=== PATIENT | male | born 1985 | race Caucasian/White ===

== ENCOUNTER 2024-04-09 04:20 | Emergency (ER) | payer OTHER ==
[~2024-04-09] VITALS: Ht 175.3 cm; Wt 100.0 kg
[2024-04-09 04:23] VITALS: TEMP 97.7; O2SAT 96
[2024-04-09 06:51] VITALS: BP 140/83; PULSE 81; RESP 15
== END 2024-04-09 06:52 | disposition home or self-care (01) ==
LOC: ER 04:20
DX: R63.8 Other symptoms and signs concerning food and fluid intake (principal); R10.9 Unspecified abdominal pain; G47.9 Sleep disorder, unspecified; F20.9 Schizophrenia, unspecified; F31.9 Bipolar disorder, unspecified; Z86.59 Personal history of other mental and behavioral disorders
CPT/HCPCS: 99283